=== PATIENT | female | born 1985 | race African-American/Black ===

== ENCOUNTER 2016-12-17 18:34 | Emergency (ER) | payer OTHER ==
[~2016-12-17] VITALS: Ht 165.1 cm; Wt 106.6 kg
[~2016-12-17 18:34] MED LIST: ALBUTEROL SULF8.5 GM INH; ALBUTEROL2.5 MG/3 M INH; CHERATUSSIN AC118 ML PO; COUGH SYRU100 MG/5 M PO; CYCLOBENZAPRINE10 MG ORAL; GUAIFENESIN-CO118 M1 ORAL; IBUPROFEN600 MG ORAL; IBUPROFEN600 MG PO; KEFLEX500 MG ORAL; NITROFURANTOIN100 M2 ORAL; NKM; NORCO 5-325 TA1 EACH ORAL; PREDNISONE20 MG ORAL; PREDNISONE50 MG ORAL; PROAIR HFA8.5 GM INH; PROAIR RESPICL90 MCG IH; PROMETHAZINE-C118 M1 ORAL; QVAR7.3 GM INH; UNOBMED; WART REMOVER1 EAC1 TP; ZITHROMAX TRI-500 MG ORAL; ZITHROMAX600 MG ORAL; ZOFRAN4 M1 ORAL; [UNRECOGNIZED DRUG - REMARK]
[2016-12-17] MEDS ORDERED: KENALOG 0.5% CR15 GM APPLIC (19:06)
[2016-12-17] MEDS ORDERED: ZITHROMAX250 MG ORAL (19:06)
[2016-12-17] MEDS ORDERED: PROMETHAZINE-D118 ML ORAL (19:06)
[2016-12-17 19:15] VITALS: BP 124/83
[2016-12-17 19:19] VITALS: BP 124/83
--- NOTE | 2016-12-17 21:05 | Emergency Room Report ---
History of Present Illness General Chief Complaint: Sore Throat Source: Patient Present Illness HPI The patient is a 31-year-old female presenting with 3 days of cough, ear pain, and sore throat. The pain is described as a 10/10 dull ache and does not radiate from the ears or throat. Pain worse with cough. Pt also admits to subjective fevers. The pt denies other symptoms including N,V, chills, night sweats, hemoptysis, and denies sick contacts or revent travel. Allergies: Coded Allergies: PENICILLINS (Verified Allergy, 05/13/13) Patient History Past Medical History: see triage record Pertinent Family History: none Now: No Reviewed Nursing Documentation: PMH: Agreed, PSxH: Agreed Nursing Documentation-PMH Hx Asthma: Yes Review of Systems All Other Systems: negative except mentioned in HPI Physical Exam Vital Signs Date Time Temp Pulse Resp B/P Pulse Ox O2 Delivery O2 Flow Rate FiO2 12/17/16 18:47 99.1 98 16 129/88 99 Room Air Sp02 EP Interpretation: reviewed, normal General Appearance: no apparent distress, alert, GCS 15, non-toxic Head: normocephalic, atraumatic Eyes: bilateral eye PERRL, bilateral eye normal inspection ENT: hearing grossly normal, no angioedema, normal voice, uvula midline, tonsillar swelling, pharyngeal erythema Neck: full range of motion, supple/symm/no masses Respiratory: chest non-tender, lungs clear, normal breath sounds, no wheezing, speaking full sentences Cardiovascular #1: regular rate, rhythm, no edema Genitourinary: normal inspection, no CVA tenderness Musculoskeletal: back normal, gait/station normal, normal range of motion, non- tender Neurologic: alert, oriented x3, responsive, motor strength/tone normal, sensory intact, speech normal Psychiatric: judgement/insight normal, memory normal, mood/affect normal, no suicidal/homicidal ideation Skin: normal color, warm/dry, well hydrated, rash - maculopapular rash to bilat medial hands Medical Decision Making PA Attestation Dr. Amanda is my supervising physician. Patient management was discussed with my supervising physician Diagnostic Impression: Primary Impression: Acute pharyngitis Additional Impression: dermatitis ER Course The patient is a 31-year-old female presenting with 3 days of cough, ear pain, and sore throat Differential diagnosis include but not limited to pharyngitis, sinusitis, AOM, bronchitis, PNA Physical exam: Vitals within normal limits. Afebrile. No apparent distress HEENT exam: There is bilateral tonsillar edema, erythema, and exudate. Uvula midline. Moist mucous membranes. There is bilateral cervical lymphadenopathy. Lungs are clear to auscultation bilaterally Skin is warm and dry. There is a maculopapular rash of bilat medial hands The patient will be discharged home with a prescription for azithromycin, triamcinolone, and cough medication and is given ER precautions. Patient will followup with primary care Last Vital Signs Date Time Temp Pulse Resp B/P Pulse Ox O2 Delivery O2 Flow Rate FiO2 12/17/16 19:19 98.7 90 14 124/83 100 Room Air Status: improved Disposition: HOME, SELF-CARE Condition: Improved Scripts Triamcinolone Acet (Triamcinolone Acetonide) 15 Gm Cream..g. 15 GM APPLIC TID, #15 GM Prov: EUSEBIO CORREA 12/17/16 D-Methorphan Hb/Prometh Hcl* (PROMETHAZINE-DM SYRUP*) 118 Ml Syrup 5 ML ORAL Q6H Y for For Cough, #118 ML 0 Refills Prov: EUSEBIO CORREA 12/17/16 Azithromycin* (ZITHROMAX*) 250 Mg Tablet 250 MG ORAL DAILY, #6 TAB 0 Refills Take two tables once daily for 1 day, then one tablet once daily for 4 days. Prov: EUSEBIO CORREA 12/17/16 Patient Instructions: Sore Throat Additional Instructions: I discussed my findings with the patient. All questions and concerns have been answered. Treatment and medication compliance have been addressed. I advised the patient that they need to follow up with PMD in 3-5 days. Return to ED if pain remains or worsens, cough worsens or remains, you notice blood in your sputum, you notice wheezing, you experience a fever, or if needed for any reason. Patient verbalized understanding of discharge instructions. EUSEBIO CORREA Dec 17, 2016 21:05
== END 2016-12-17 19:19 | disposition home or self-care (01) ==
LOC: EMR 19:03
DX: J02.9 Acute pharyngitis, unspecified (principal); J45.909 Unspecified asthma, uncomplicated; L30.9 Dermatitis, unspecified; Z88.0 Allergy status to penicillin
CPT/HCPCS: 99284

== ENCOUNTER 2017-05-31 20:23 | Emergency (ER) | payer SELFPAY ==
[~2017-05-31] VITALS: Ht 167.6 cm; Wt 99.8 kg
[~2017-05-31 20:23] MED LIST changes: +KENALOG 0.5% CR15 GM APPLIC; +PROMETHAZINE-D118 ML ORAL; +ZITHROMAX250 MG ORAL
[2017-05-31 21:20] LABS: BASOPHILS % (AUTO) 1.9 % (0.0-2.0); EOSINOPHILS % (AUTO) 1.7 % (0.0-3.0); LYMPHOCYTES % (AUTO) 50.1 % (20.0-45.0); MEAN CORPUSCULAR HEMOGLOBIN 29.7 PG (27.0-31.0); MEAN CORPUSCULAR HGB CONC 33.9 G/DL (32.0-36.0); MEAN CORPUSCULAR VOLUME 88 FL (80-99); MEAN PLATELET VOLUME 8.7 FL (6.5-10.1); MONOCYTES % (AUTO) 6.6 % (1.0-10.0); NEUTROPHILS % (AUTO) 39.7 % (45.0-75.0); PLATELET COUNT 226 K/UL (150-450); RED BLOOD COUNT 4.02 M/UL (4.20-5.40); RED CELL DISTRIBUTION WIDTH 12.4 % (11.6-14.8); WHITE BLOOD COUNT 6.1 K/UL (4.8-10.8)
[2017-05-31 21:21] LABS: APPEARANCE,URINE CLEAR; KETONES,URINE NEGATIVE (NEGATIVE); LEUKOCYTE ESTERASE ,URINE 2+ (NEGATIVE); NITRITE,URINE NEGATIVE (NEGATIVE); PH,URINE 7 (4.5-8.0); PROTEIN,URINE NEGATIVE (NEGATIVE); UROBILINOGEN,URINE 1 MG/DL (0.0-1.0)
[2017-05-31 21:26] LABS: RBC,URINE 0-2 /HPF (0 - 2); SQUAMOUS EPITHELIAL CELL,UR FEW /LPF (NONE/OCC)
[2017-05-31 21:27] LABS: BACTERIA,URINE FEW /HPF; YEAST,URINE FEW /HPF
--- NOTE | 2017-05-31 21:29 | Emergency Room Report ---
History of Present Illness General Chief Complaint: Abdominal Pain Source: Patient Present Illness HPI 31-year-old female no significant past medical history presenting with nausea vomiting diarrhea for 2 days. >8 episodes of nonbilious nonbloody vomiting, >8 episodes of watery nonbloody diarrhea. Complains of burning epigastric pain which occurred after the vomiting. Denies fever or chills dysuria hematuria. States last menstrual period was 2 weeks ago Allergies: Coded Allergies: PENICILLINS (Verified Allergy, 05/13/13) Patient History Past Medical History: none Past Surgical History: none Pertinent Family History: none Last Menstrual Period: Last month Now: No Reviewed Nursing Documentation: PMH: Agreed, PSxH: Agreed Nursing Documentation-PMH Past Medical History: No History, Except For Hx Asthma: Yes Review of Systems All Other Systems: negative except mentioned in HPI Physical Exam Vital Signs Date Time Temp Pulse Resp B/P (MAP) Pulse Ox O2 Delivery O2 Flow Rate FiO2 05/31/17 20:29 98.6 87 17 140/90 98 Room Air Sp02 EP Interpretation: reviewed, normal General Appearance: normal inspection, well appearing, no apparent distress, alert, GCS 15, non-toxic Head: normocephalic, atraumatic Eyes: bilateral eye normal inspection, bilateral eye PERRL, bilateral eye EOMI ENT: normal ENT inspection, normal pharynx, normal voice, moist mucus membranes Neck: normal inspection, full range of motion, supple Respiratory: normal inspection, lungs clear, normal breath sounds, no respiratory distress, no retraction, no wheezing, speaking full sentences, chest symmetrical Cardiovascular #1: normal inspection, regular rate, rhythm, no edema, normal capillary refill Gastrointestinal: non tender, soft, non-distended, no guarding, other - Nontender all quadrants to deep palpation Musculoskeletal: normal inspection, back normal, normal range of motion, non- tender Neurologic: normal inspection, alert, oriented x3, responsive, motor strength/ tone normal, sensory intact, normal gait, speech normal Psychiatric: normal inspection, judgement/insight normal, memory normal Skin: normal inspection, normal color, no rash, warm/dry, well hydrated, normal turgor Medical Decision Making Diagnostic Impression: Primary Impression: Nausea vomiting and diarrhea ER Course 31 yo F with nvd DDX: gastroenteritis / UTI at this time abdomen soft NT all quadrants, not c/w surgical pathology such as cholecystitis/appendicitis Plan routine labs, zofran, IVF ER course: patient feels much better w/ meds repeat abd exam nontender no furhter episodes vomiting Disposition: Patient to be discharged to home. Patient is instructed to followup with her primary care doctor within 2 days. Patient is instructed to come back to the emergency room if she has high fever chills intractable nausea and vomiting and severe worsening abdominal pain. Patient verbalizes understanding and agrees with plan Laboratory Tests Test 05/31/17 21:00 White Blood Count 6.1 K/UL (4.8-10.8) Red Blood Count 4.02 M/UL (4.20-5.40) L Hemoglobin 12.0 G/DL (12.0-16.0) Hematocrit 35.3 % (37.0-47.0) L Mean Corpuscular Volume 88 FL (80-99) Mean Corpuscular Hemoglobin 29.7 PG (27.0-31.0) Mean Corpuscular Hemoglobin Concent 33.9 G/DL (32.0-36.0) Red Cell Distribution Width 12.4 % (11.6-14.8) Platelet Count 226 K/UL (150-450) Mean Platelet Volume 8.7 FL (6.5-10.1) Neutrophils (%) (Auto) 39.7 % (45.0-75.0) L Lymphocytes (%) (Auto) 50.1 % (20.0-45.0) H Monocytes (%) (Auto) 6.6 % (1.0-10.0) Eosinophils (%) (Auto) 1.7 % (0.0-3.0) Basophils (%) (Auto) 1.9 % (0.0-2.0) Urine Color Yellow Urine Appearance Clear Urine pH 7 (4.5-8.0) Urine Specific [place] 1.010 (1.005-1.035) Urine Protein Negative (NEGATIVE) Urine Glucose (UA) Negative (NEGATIVE) Urine Ketones Negative (NEGATIVE) Urine Occult Blood Negative (NEGATIVE) Urine Nitrite Negative (NEGATIVE) Urine Bilirubin Negative (NEGATIVE) Urine Urobilinogen 1 MG/DL (0.0-1.0) H Urine Leukocyte Esterase 2+ (NEGATIVE) H Urine RBC 0-2 /HPF (0 - 2) Urine WBC 5-10 /HPF (0 - 2) H Urine Squamous Epithelial Cells Few /LPF (NONE/OCC) Urine Bacteria Few /HPF (NONE) Urine Yeast Few /HPF (NONE) H Urine HCG, Qualitative Negative Sodium Level 140 mEQ/L (135-145) Potassium Level 4.0 mEQ/L (3.4-4.9) Chloride Level 101 mEQ/L (98-107) Carbon Dioxide Level 27 mEQ/L (20-30) Anion Gap 12 (5-15) Blood Urea Nitrogen 12 mg/dL (7-23) Creatinine 0.8 mg/dL (0.5-0.9) Estimate Glomerular Filtration Rate > 60 mL/min (>60) Glucose Level 101 mg/dL (74-106) Calcium Level 9.1 mg/dL (8.6-10.2) Total Bilirubin 0.2 mg/dL (0.0-1.2) Aspartate Amino Transferase (AST) 13 U/L (5-40) Alanine Aminotransferase (ALT) 9 U/L (3-33) Alkaline Phosphatase 49 U/L (35-104) Total Protein 7.4 g/dL (6.6-8.7) Albumin 4.1 g/dL (3.5-5.2) Globulin 3.3 g/dL Albumin/Globulin Ratio 1.2 (1.0-2.7) Lipase 40 U/L (< 60) Rhythm Strip Diag. Results EP Interpretation: yes Rhythm: NSR, no PVC's, no ectopy Last Vital Signs Date Time Temp Pulse Resp B/P (MAP) Pulse Ox O2 Delivery O2 Flow Rate FiO2 05/31/17 20:29 98.6 87 17 140/90 98 Room Air Disposition: HOME, SELF-CARE Condition: Improved Scripts Nitrofurantoin Monohyd/M-Cryst* (MACROBID 100 MG*) 100 Mg Capsule 100 MG ORAL EVERY 12 HOURS for 5 Days, CAP Prov: Josi Stern M.D. 05/31/17 Patient Instructions: Abdominal Pain, Adult, Urinary Tract Infection, Easy-to- Read, Viral Gastroenteritis, Adult Josi Stern M.D. May 31, 2017 21:29
[2017-05-31 21:36] LABS: ALANINE AMINOTRANSFERASE 9 U/L (3-33); ALBUMIN/GLOBULIN RATIO 1.2 (1.0-2.7); ANION GAP 12 (5-15); ASPARTATE AMINO TRANSFERASE 13 U/L (5-40); CALCIUM 9.1 mg/dL (8.6-10.2); CARBON DIOXIDE 27 mEQ/L (20-30); CHLORIDE 101 mEQ/L (98-107); CREATININE 0.8 mg/dL (0.5-0.9); GLOMERULAR FILTRATION RATE > 60 mL/min (>60); HEMOLYSIS 4; LIPASE 40 U/L (< 60); SODIUM 140 mEQ/L (135-145); TOTAL PROTEIN 7.4 g/dL (6.6-8.7)
[2017-05-31 21:44] VITALS: BP 134/95
[2017-05-31] MEDS ORDERED: NITROFURANTOIN100 M2 ORAL (21:52)
[2017-05-31 22:26] VITALS: BP 134/95
== END 2017-05-31 22:30 | disposition home or self-care (01) ==
LOC: EMR 20:59
DX: R11.2 Nausea with vomiting, unspecified (principal); R19.7 Diarrhea, unspecified; Z88.0 Allergy status to penicillin
CPT/HCPCS: 36415; 80053; 81003; 81025; 83690; 85025; 87086; 87181; 96374; 96375; 99284; J2405

== ENCOUNTER 2018-02-16 18:08 | Emergency (ER) | payer MEDICAID ==
[~2018-02-16] VITALS: Ht 167.6 cm; Wt 99.8 kg
--- NOTE | 2018-02-16 18:30 | Emergency Room Report ---
History of Present Illness General Chief Complaint: Abdominal Pain Source: Patient Present Illness HPI 32 YO Female presents to the ED c/o nausea, vomiting, and diarrhea since yesterday. acute onset with accompanying hot flash 1 hour after consuming spicy seafood. Pt. denies blood in the vomit or stool. She denies ill contacts or recent travel. pt. reports burning epigastric pain with intermittent cramping throughout the abdomen. She reports a dull 4/10 in severity generalized CORTEZ since last night. pt. states she was up all night in the bathroom, she feels she basically spent the night in there between the vomiting and diarrhea. She denies or constipation. Denies CP, Palpitations, LOC, AMS, dizziness, Changes in Vision, Sensation, paresthesias, or a sudden severe headache. Allergies: Coded Allergies: PENICILLINS (Verified Allergy, 05/13/13) Patient History Past Medical History: see triage record Past Surgical History: none Pertinent Family History: none Last Menstrual Period: 2 weeks ago Now: No Reviewed Nursing Documentation: PMH: Agreed; PSxH: Agreed Nursing Documentation-PMH Past Medical History: No History, Except For Hx Asthma: Yes Review of Systems All Other Systems: negative except mentioned in HPI Physical Exam Vital Signs Date Time Temp Pulse Resp B/P (MAP) Pulse Ox O2 Delivery O2 Flow Rate FiO2 02/16/18 18:19 98.1 100 18 124/86 96 Room Air 98.1 Sp02 EP Interpretation: reviewed, normal General Appearance: no apparent distress, alert, GCS 15, non-toxic Head: normocephalic, atraumatic Eyes: bilateral eye normal inspection, bilateral eye PERRL ENT: hearing grossly normal, normal voice Neck: full range of motion Respiratory: chest non-tender, lungs clear, normal breath sounds, speaking full sentences Cardiovascular #1: regular rate, rhythm Gastrointestinal: normal bowel sounds, non tender, soft, non-distended, no guarding Rectal: deferred Genitourinary: normal inspection, no CVA tenderness Musculoskeletal: back normal, gait/station normal, normal range of motion, non- tender Neurologic: alert, oriented x3, responsive, motor strength/tone normal, sensory intact, speech normal, grossly normal Psychiatric: judgement/insight normal Skin: normal color, no rash, warm/dry, well hydrated Medical Decision Making PA Attestation Dr. christy is my supervising Physician whom patient management has been discussed with. Diagnostic Impression: Primary Impression: Abdominal pain Qualified Codes: R10.84 - Generalized abdominal pain Additional Impression: Vomiting and diarrhea ER Course 32 YO Female presents to the ED c/o nausea, vomiting, and diarrhea since yesterday. acute onset with accompanying hot flash 1 hour after consuming spicy seafood. Pt. denies blood in the vomit or stool. She denies ill contacts or recent travel. pt. reports burning epigastric pain with intermittent cramping throughout the abdomen. She reports a dull 4/10 in severity generalized CORTEZ since last night. pt. states she was up all night in the bathroom, she feels she basically spent the night in there between the vomiting and diarrhea. She denies or constipation. Denies CP, Palpitations, LOC, AMS, dizziness, Changes in Vision, Sensation, paresthesias, or a sudden severe headache. Ddx considered but are not limited to GE, colitis, acute appy, SBO, Cyclical Vomiting secondary to THC, * Vital signs: pt. is afebrile, H&PE are most consistent with GE most likely viral in etiology, no evidence to suggest acute abdomen on physical exam. ORDERS: -Urine Hcg: Negative ED INTERVENTIONS: -1000 NS iv hydration, -Compazine -Pepcid PO -Bentyl PO -Mylanta PO -Tylenol PO Pt. reports her CORTEZ has resolved. her stomach still feels "very active" pt. is able to tolerate oral fluids and meds. DISCHARGE: At this time pt. is stable for d/c to home. Will provide printed patient care instructions, and any necessary prescriptions. Care plan and follow up instructions have been discussed with the patient prior to discharge. Last Vital Signs Date Time Temp Pulse Resp B/P (MAP) Pulse Ox O2 Delivery O2 Flow Rate FiO2 02/16/18 18:19 98.1 100 18 124/86 96 Room Air 98.1 Disposition: HOME, SELF-CARE Condition: Stable Scripts Lidocaine HCl 2% Viscous (Lidocaine HCl 2% Viscous) 100 Ml Solution 15 ML ORAL QID, #200 ML Prov: Roseanna Alan 02/16/18 Mag Hydrox/Al Hydrox/Simeth (ALUM-MAG HYDROXIDE-SIMETH LIQ) 360 Ml Oral.susp 20 ML PO TID, #360 ML Prov: Roseanna Alan 02/16/18 Dicyclomine Hcl* (DICYCLOMINE HCL*) 10 Mg Capsule 10 MG PO QID, #20 CAP Prov: Roseanna Alan 02/16/18 Departure Forms: Return to Work Return to Work Date: February 20, 2018 Work Restrictions: None Return to Full Activity: February 20, 2018 Patient Instructions: Abdominal Pain, Adult Additional Instructions: Take medications as directed. Follow up with a Primary Care Provider in 3-5 days, even if your symptoms have resolved. --Please review list of primary care clinics, if you do not already have a primary care provider Return sooner to ED if new symptoms occur, or current symptoms become worse. - Please note that this Emergency Department Report was dictated using [email or web address] set up operator technology software, occasionally this can lead to erroneous entry secondary to interpretation by the dictation equipment. Roseanna Alan February 16, 2018 18:30
[2018-02-16 18:45] VITALS: BP 124/86
[2018-02-16] MEDS ORDERED: Dicyclomine HCl 10mg/5ml oral soln ORAL ONE ×2 (18:45→21:00)
[2018-02-16] MEDS ORDERED: Lidocaine 2% Visc 15ml soln ORAL ONE (18:45)
[2018-02-16] MEDS ORDERED: Mylanta II UD 30ml ORAL ONE (18:45)
[2018-02-16] MEDS ORDERED: Prochlorperazine 10mg tab ORAL ONE (19:30)
[2018-02-16] MEDS ORDERED: Sodium Chloride 500ML 500 ML IV ONE (19:45)
[2018-02-16] MEDS ORDERED: ALUM-MAG HYDRO360 ML PO (21:08)
[2018-02-16] MEDS ORDERED: LIDOCAINE VISC100 ML ORAL (21:08)
[2018-02-16] MEDS ORDERED: DICYCLOMINE HCL10 MG PO (21:08)
[2018-02-16 21:20] VITALS: BP 129/82
== END 2018-02-16 21:45 | disposition home or self-care (01) ==
LOC: EMR 18:57
DX: R11.2 Nausea with vomiting, unspecified (principal); R10.9 Unspecified abdominal pain; R19.7 Diarrhea, unspecified; J45.909 Unspecified asthma, uncomplicated; Z88.0 Allergy status to penicillin
CPT/HCPCS: 81025; 96374; 99284; J7040